=== PATIENT | male | born 1970 | race Caucasian/White ===

== ENCOUNTER 2016-02-27 21:10 | Emergency (ER) | payer OTHER ==
[~2016-02-27] VITALS: Ht 182.9 cm; Wt 93.0 kg
[2016-02-27 23:06] VITALS: BP 103/63
== END 2016-02-27 23:11 | disposition home or self-care (01) ==
LOC: ER 21:10
DX: S00.432A Contusion of left ear, initial encounter (principal); F07.81 Postconcussional syndrome; F17.210 Nicotine dependence, cigarettes, uncomplicated; W22.8XXA Striking against or struck by other objects, initial encounter; Y93.89 Activity, other specified; Y92.89 Other specified places as the place of occurrence of the external cause; Y99.8 Other external cause status